=== PATIENT | male | born 1995 | race African-American/Black ===

== ENCOUNTER 2021-12-21 03:42 | Emergency (ER) | payer OTHER ==
[~2021-12-21] VITALS: Ht 182.9 cm; Wt 77.1 kg
[2021-12-21 03:45] VITALS: BP 119/94
[2021-12-21] MEDS ORDERED: DOCU-141 PO (03:53)
[2021-12-21] MEDS ORDERED: KETO10TA2 PO (03:53)
[2021-12-21] MEDS ORDERED: KETOROLAC TROMETHAMINE INJ 60 MG/2 ML VIAL IM ONE ×2 (03:55→04:00)
--- NOTE | 2021-12-21 04:08 | NUR ---
Patient discharged to home in stable condition. Written and verbal after care instructions given. Patient verbalizes understanding of instruction. Pt ambulatory with a steady gait
== END 2021-12-21 04:09 | disposition home or self-care (01) ==
LOC: ER 03:42
DX: K64.8 Other hemorrhoids (principal); Z79.899 Other long term (current) drug therapy
CPT/HCPCS: J1885